=== PATIENT | female | born 2000 | race Caucasian/White ===

== ENCOUNTER 2019-03-07 12:20 | Emergency (ER) | payer SELFPAY ==
[2019-03-07] MEDS ORDERED: diphenhydrAMINE 25 MG CAP PO ONE (12:31)
--- NOTE | 2019-03-07 12:31 | Event Note ---
ED Screening Note Date of service: 03/07/19 Time: 12:29 ED Screening Note: Pt complains of dizziness and shortness of breath after receiving a decadron shot at urgent care x [facility] was being seen at for sore throat denies any further SOB or dizziness This initial assessment/diagnostic orders/clinical plan/treatment(s) is/are subject to change based on patients health status, clinical progression and re- assessment by fellow clinical providers in the ED. Further treatment and workup at subsequent clinical providers discretion. Patient/guardian urged not to elope from the ED as their condition may be serious if not clinically assessed and managed. Initial orders include: ACC benadryl
--- NOTE | 2019-03-07 12:33 | Emergency Department Report ---
ED Allergic Reaction HPI - General Chief complaint: Allergic Reaction Stated complaint: POSS ALLERGIC REACTION Time Seen by Provider: 03/07/19 12:26 Source: patient, EMS Mode of arrival: Wheelchair Limitations: No Limitations - History of Present Illness Initial Comments: 18-year-old female presents with complaints of dizziness and shortness of breath after receiving a Decadron shot while at urgent care x prior to arrival. Patient was being seen at urgent care for a or throat. Patient states her dizziness and shortness of breath have resolved. She denies any difficulty swallowing, rash, or swelling. Patient states her sore throat has been ongoing for about 10 days and is worsening. She states she had a negative strep tests while at urgent care. She denies any fever. - Related Data Previous Rx's Medication Instructions Recorded Last Taken Type Amoxicillin [Trimox CAP] 500 mg PO Q8H 10 Days #20 capsule 03/07/19 Unknown Rx Cetirizine HCl [Zyrtec 10mg tab] 10 mg PO QDAY 3 Days #3 tablet 03/07/19 Unknown Rx Ibuprofen [Motrin 600 MG tab] 600 mg PO TID PRN #15 tab 03/07/19 Unknown Rx Allergies Allergy/AdvReac Type Severity Reaction Status Date / Time dexamethasone [From Decadron] Allergy Hives Verified 03/07/19 12:22 ED Review of Systems ROS: Stated complaint: POSS ALLERGIC REACTION Other details as noted in HPI Comment: All other systems reviewed and negative ENT: throat pain Respiratory: shortness of breath. denies: cough Skin: denies: rash ED Past Medical Hx - Past Medical History Previous Medical History?: No - Surgical History Past Surgical History?: No - Social History Smoking Status: Never Smoker Substance Use Type: None - Medications Home Medications: Home Medications Medication Instructions Recorded Confirmed Last Taken Type Amoxicillin [Trimox CAP] 500 mg PO Q8H 10 Days #20 capsule 03/07/19 Unknown Rx Cetirizine HCl [Zyrtec 10mg tab] 10 mg PO QDAY 3 Days #3 tablet 03/07/19 Unknown Rx Ibuprofen [Motrin 600 MG tab] 600 mg PO TID PRN #15 tab 03/07/19 Unknown Rx ED Physical Exam - General Limitations: No Limitations General appearance: alert, in no apparent distress - Head Head exam: Present: atraumatic, normocephalic - Eye Eye exam: Present: normal appearance - ENT ENT exam: Present: mucous membranes moist - Expanded ENT Exam Expanded Mouth exam: Present: tongue normal. Absent: drooling, trismus, muffled voice Throat exam: Positive: tonsillar erythema, tonsillomegaly. Negative: tonsillar exudate, R peritonsillar mass, L peritonsillar mass - Neck Neck exam: Present: normal inspection, lymphadenopathy (mild cervical ) - Respiratory Respiratory exam: Present: normal lung sounds bilaterally. Absent: respiratory distress, wheezes, rales, rhonchi, stridor, accessory muscle use - Cardiovascular Cardiovascular Exam: Present: regular rate, normal rhythm. Absent: systolic murmur, diastolic murmur, rubs, gallop - Extremities Exam Extremities exam: Present: normal inspection - Neurological Exam Neurological exam: Present: alert, oriented X3 - Psychiatric Psychiatric exam: Present: normal affect, normal mood - Skin Skin exam: Present: warm, dry, intact, normal color. Absent: rash, cyanosis, urticaria, vesicles, ecchymosis ED Course Vital Signs 03/07/19 03/07/19 12:27 13:34 Temperature 98.4 F 98.4 F Pulse Rate 84 85 Respiratory 16 18 Rate Blood Pressure 95/61 Blood Pressure 92/57 [Right] O2 Sat by Pulse 97 100 Oximetry ED Medical Decision Making - Medical Decision Making Patient presents with complaints of dizziness and shortness of breath after receiving a Decadron shot at an urgent care prior to arrival. She states her symptoms have resolved. Patient given 50 mg of oral Benadryl and observed in the ED for 1.5 hours. She continues to to deny any further dizziness or shortness of breath. No rashes or difficulty swallowing noted on exam. Tonsils are erythematous and swollen. Vitals are normal. Patient is stable for discharge home with treatment for strep throat. She also given prescription for cetirizine. Recommend follow with primary care provider within 3-5 days. Discussed strict return precautions in detail with patient who verbalizes understanding. Critical care attestation.: If time is entered above; I have spent that time in minutes in the direct care of this critically ill patient, excluding procedure time. ED Disposition Clinical Impression: Allergic reaction caused by a drug Qualifiers: Encounter type: initial encounter Qualified Code(s): T78.40XA - Allergy, unspecified, initial encounter Pharyngitis Qualifiers: Pharyngitis/tonsillitis etiology: other specified organisms Qualified Code(s): J02.8 - Acute pharyngitis due to other specified organisms Disposition: - TO HOME OR SELFCARE Is pt being admited?: No Condition: Stable Instructions: Strep Throat (ED) Prescriptions: Ibuprofen [Motrin 600 MG tab] 600 mg PO TID PRN #15 tab PRN Reason: pain Amoxicillin [Trimox CAP] 500 mg PO Q8H 10 Days #20 capsule Cetirizine HCl [Zyrtec 10mg tab] 10 mg PO QDAY 3 Days #3 tablet Referrals: PRIMARY CARE, [Primary Care Provider] - 3-5 Days
[2019-03-07 13:35] VITALS: BP 92/57
== END 2019-03-07 13:36 | disposition home or self-care (01) ==
LOC: ED 12:20
DX: T45.0X1A Poisoning by antiallergic and antiemetic drugs, accidental (unintentional), initial encounter (principal); J02.9 Acute pharyngitis, unspecified; Z79.899 Other long term (current) drug therapy; Z88.8 Allergy status to other drugs, medicaments and biological substances; X58.XXXA Exposure to other specified factors, initial encounter; Y93.89 Activity, other specified; Y92.89 Other specified places as the place of occurrence of the external cause; Y99.8 Other external cause status